=== PATIENT | male | born 1985 | race Caucasian/White ===

== ENCOUNTER 2019-09-15 08:28 | Emergency (ER) | payer BC, SELFPAY ==
--- NOTE | ~2019-09-15 | XR_ITS ---
EXAMINATION: XR hand RT min 3V DATE: 09/15/2019 08:49 INDICATION: Right hand injury with swelling at the fourth and fifth digits. TECHNIQUE: Posteroanterior, oblique and lateral views of the right hand were obtained. COMPARISON: 03/20/2007 FINDINGS: Alignment is normal. No fracture. Joint spaces are normal. Mild soft tissue swelling of the dorsum of the hand. IMPRESSION: 1. No osseous abnormality. Reviewed, dictated and finalized at location A. IMPRESSION: 1. No osseous abnormality.
[2019-09-15 08:38] VITALS: BP 158/101; PULSE 100; RESP 16; TEMP 36.9; O2SAT 100
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
[2019-09-15 09:44] VITALS: BP 145/99; PULSE 94; RESP 16; O2SAT 99
== END 2019-09-15 09:45 | disposition home or self-care (01) ==
PROVIDERS: Emergency Provider Emergency Medicine; PCP Family Medicine
DX: S63.259A Unspecified dislocation of unspecified finger, initial encounter (principal); Y04.0XXA Assault by unarmed brawl or fight, initial encounter
CPT/HCPCS: 29125; 73130; 99283

== ENCOUNTER 2019-10-23 00:31 | Outpatient (CLI) | payer BC, SELFPAY ==
[2019-10-23 17:34] LABS: SARS-CoV-2 RNA PCR Negative
== END 2019-10-23 00:32 | disposition home or self-care (01) ==
LOC: ANHCOVIDDT 00:32
PROVIDERS: PCP Family Medicine; Visit Provider Orthopaedic Surgery
DX: Z01.812 Encounter for preprocedural laboratory examination (principal); Z11.59 Encounter for screening for other viral diseases
CPT/HCPCS: 87635; C9803; U0003

== ENCOUNTER 2019-10-25 01:05 | Day surgery (SDC) | payer BC, SELFPAY ==
[2019-10-15 09:58] VITALS: BMI 25.1
[2019-10-25 06:52] VITALS: BP 123/86; PULSE 88; RESP 18; TEMP 36.6; O2SAT 98
[2019-10-25] MEDS: LACTATED RINGERS 1,000 ML 30 ML IV CONT (06:58)
--- NOTE | 2019-10-25 07:15 | WPDHPUPDATE1 ---
History and Physical Update Update Date/Time: 10/25/19 07:15 History and Physical has been reviewed, including an updated exam of the patient. There are NO changes in the patient's condition. Risks, benefits, and alternatives have been discussed and questions answered. Patient agrees to proceed with procedure.
--- NOTE | 2019-10-25 07:22 | WPDANESEPPF ---
Anes - Initial Pre Proc Eval Procedure: Operation Date: 10/25/19 08:30 Proposed Procedures p Excision Ganglion Cyst Left Wrist - Akin Rivas MD Date/Time: 10/25/19 07:22 Surgeon: Akin Rivas MD Pre Op Diagnosis: Left Ganglion Cyst Patient Data Age: 33 Gender: M Height: 1.8 m Weight: 88.8 kg Last Vital Signs Temp 36.6 C 10/25/19 06:52 Pulse 88 10/25/19 06:52 Resp 18 10/25/19 06:52 BP 123/86 10/25/19 06:52 Pulse Ox 98 10/25/19 06:52 Allergies Allergy/AdvReac Type Severity Reaction Status Date / Time No Known Allergies Allergy Verified 10/25/19 07:08 Home Medications Medication Instructions Recorded Confirmed Type No Home Medications 09/15/19 10/25/19 History Patient hx anesthesia problems: none Family hx anesthesia problems: none PMFSH Past Medical History Medical History (Updated 10/25/19 @ 07:24 by Giovani Fraga MD) Ganglion cyst of dorsum of left wrist Hx of gastric ulcer Overweight (BMI 25.0-29.9) Tobacco abuse Surgical History Surgical History History of circumcision Social History Social History Smoking packs per day: 0.5 Smoking cigarettes per day: 10.0 Smoking status: Current every day smoker Tobacco type: cigarettes Second hand tobacco smoke exposure: Yes Alcohol intake: current Drinks per week: 1 Substance use: never Substance use type: does not use Gender identity (if verbalized by the patient): Male Anes - Eval Final PreProcedure Day of Procedure 10/25/19 07:22 Patient weight: overweight Heart: regular rate and rhythm Lungs: clear to auscultation and normal air movement Airway: Mallampati scale class II Neurological: alert and oriented Last oral intake: >/= 8 hours ASA classification: II Emergent: no Anesthetic plan: proceed Anesthesia type and monitoring: general GIVS and LMA Informed Consent: The patient's anesthetic plan and its attendant risks and benefits were discussed with the patient/family/POA. Questions were solicited and answers provided to the satisfaction of the patient/family/POA.
[2019-10-25] MEDS: ceFAZolin 2 GM/D5W 50 ML 2 GM/50 ML BAG IVPB (08:49)
[2019-10-25 09:40] VITALS: BP 127/68; PULSE 97; RESP 17; O2SAT 98
[2019-10-25 10:10] VITALS: BP 105/81; PULSE 81; RESP 16; O2SAT 98
[2019-10-25 10:37] VITALS: BP 106/74; PULSE 72; RESP 15; O2SAT 99
--- NOTE | 2019-10-26 10:55 | P.OP_ITS ---
Procedure Note - Detailed Date of procedure: 10/25/19 Pre-op diagnosis: Left Ganglion Cyst Post-op diagnosis: other ( Dorsal ganglion cyst, left wrist.) Procedure performed: Ganglion cyst excision left dorsal wrist. Description of procedure: The cyst was approximately 1 and 1/2 cm in diameter. It appeared to originate from the extensor tendon synovium. Mucinous fluid was extracted. The appearance was entirely benign. Anesthesia: GLMA Surgeon: Akin Rivas MD Estimated blood loss (mL): 1 Pathology: none sent Complications: No immediate complications Condition: stable Disposition: PACU Findings: Preoperative antibiotics were given. Anesthesia was administered. The arm was prepped and draped in the usual sterile fashion. A tourniquet placed high on the arm. The limb was exsanguinated and the tourniquet inflated to 250 mmHg. A transverse incision was created over the cyst after insufflation with 2 mL of 0.5% Marcaine with epinephrine. Careful dissection was carried w ith the dissection scissors around mass. There did not appear to be a significant pedunculated stalk. It appeared to originate from the extensor tendon synovial sheath. The cystic material was completely excised. The wound was irrigated and closed with interrupted 4 0 Monocryl suture and running 4 0 Monocryl suture followed by Steri-Strips. A sterile bulky dressing with a slight bolster was placed. The patient was brought to the recovery room in stable condition. There were no complications.
== END 2019-10-25 11:10 | disposition home or self-care (01) ==
PROVIDERS: Visit Provider Orthopaedic Surgery
PROC: (CPT 25111; principal; 2019-10-25 08:30)
DX: M67.432 Ganglion, left wrist (principal)
CPT/HCPCS: 25111; J0131; J0690; J1100; J1170; J2250; J2405; J2704; J3010; J7120

== ENCOUNTER 2020-05-07 04:06 | Emergency (ER) | payer OTHER, BC, SELFPAY ==
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
[2020-05-07 04:27] VITALS: BP 153/109; PULSE 97; RESP 12; TEMP 36.6; O2SAT 100
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
[2020-05-07 05:55] VITALS: BP 137/89; PULSE 88; RESP 19; O2SAT 97
== END 2020-05-07 05:55 | disposition home or self-care (01) ==
PROVIDERS: Emergency Provider Emergency Medicine
DX: S80.01XA Contusion of right knee, initial encounter (principal); V63.5XXA Driver of heavy transport vehicle injured in collision with car, pick-up truck or van in traffic accident, initial encounter; T14.8XXA Other injury of unspecified body region, initial encounter; F17.210 Nicotine dependence, cigarettes, uncomplicated
CPT/HCPCS: 73562; 99283